=== PATIENT | female | born 1950 | race Caucasian/White ===

== ENCOUNTER → 2017-09-22 | Outpatient (CLI) | payer OTHER, MEDICARE ==
[~2017-09-22] MED LIST: AMIT50TA3 PO; ASCA500 PO; CALC500C70 PO; GUARCHW PO; IPRA0.037 NAE; NXM/40 PO; OMEG10007 PO; ONDA4TAB46 PO; POLY335019 PO; RANI300T2 PO; SIMV20TA5 PO; TRIA1SPR4 NAE; ZOLE5INJ IV
--- NOTE | 2017-09-22 13:45 | MAMMOGRAPHY REPORT ---
BILATERAL DIGITAL SCREENING MAMMOGRAM TOMOSYNTHESIS WITH CAD: 09/22/2017 TECHNIQUE: Breast tomosynthesis in addition to standard 2D mammography was performed. Current study was also evaluated with a Computer Aided Detection (CAD) system. COMPARISON: Comparison is made to exams dated: 09/21/2016 mammogram, 09/17/2015 mammogram, 4 mammogram, 09/12/2013 mammogram, 08/04/2012 mammogram, and 07/01/2011 mammogram - [facility]. BREAST COMPOSITION: The tissue of both breasts is heterogeneously dense, which may obscure small mas ses. FINDINGS: No suspicious masses, calcifications, or areas of architectural distortion are noted in ei ther breast. There has been no significant interval change compared to prior exams. Biopsy marker cl ips are again noted within the left breast. Bilateral benign-appearing calcifications are not signif icantly changed compared to multiple prior exams. IMPRESSION: ACR BI-RADS CATEGORY 2: BENIGN There is no mammographic evidence of malignancy. A 1 year screening mammogram is recommended. The pa tient will receive written notification of the results. Approximately 10% of breast cancers are not detected with mammography. A negative mammographic report should not delay biopsy if a clinically suggestive mass is present. La Masters M.D. /:09/22/2017 12:18:18 Match Maker: Michelle VANN(Shruthi)(M), [facility] letter sent: Normal 1/2 BI-RADS Code: ACR BI-RADS Category 2: Benign
== END | disposition home or self-care (01) ==
LOC: C.MAMM 09:59
PROVIDERS: ATTEND Family Medicine
DX: Z12.31 Encounter for screening mammogram for malignant neoplasm of breast (principal)

== ENCOUNTER → 2017-10-06 | Outpatient (CLI) | payer OTHER, MEDICARE ==
--- NOTE | 2017-10-06 09:42 | EXERCISE STRESS TEST ---
This stress test is being performed because of a chest pain syndrome. The patient exercised for 6 minutes and 5 seconds on a standard Dmitri protocol attaining 7.1 METS and a peak heart rate of 164 beats per minute (greater than 100% predicted maximum). The test was terminated due to fatigue. The patient did not experience exertional anginal pectoris. Initial blood pressure is 130/82 and this increased to 183/87 at peak exertion. Baseline EKG shows normal sinus rhythm without abnormalities. Throughout exercise and recovery, the ST segments remained normal. There were no dysrhythmias. CONCLUSIONS: 1. Normal ECG. Exercise treadmill test predicting a low probability of significant coronary artery disease. 2. No exercise induced chest pain. 3. No EKG changes. 4. No dysrhythmia.
== END | disposition home or self-care (01) ==
LOC: C.CPL 08:20
PROVIDERS: ATTEND Family Medicine
DX: R07.9 Chest pain, unspecified (principal); E78.00 Pure hypercholesterolemia, unspecified

== ENCOUNTER → 2018-02-23 | Outpatient (CLI) | payer OTHER, MEDICARE ==
--- NOTE | 2018-02-23 09:38 | DIAGNOSTIC IMAGING REPORT ---
FUSION CT SINUSES W/O CLINICAL HISTORY: 67 years-old Female presenting with J32.9 Chronic sinusitis Patient has lightheadedness, headache. TECHNIQUE: Multidetector CT of the sinuses was performed without the use of intravenous contrast. IV contrast: None. A dose lowering technique was used consistent with the principles of ALARA (as low as reasonably achievable). COMPARISON: 09/25/2014. CT DOSE (mGy.cm): The estimated cumulative dose is 658.02 mGy.cm. FINDINGS: Sprayer Hand topogram: Unremarkable. Paranasal sinuses demonstrate minimal mucosal thickening in the inferior aspect of the left maxillary sinus. Remainder of paranasal sinuses and mastoid air cells clear. Middle ears clear. No sclerosis of the sinus velazquez to suggest chronic sinusitis. No osseous erosion. Nasofrontal ethmoid recesses and ostiomeatal units are patent bilaterally. No significant deviation of the bony nasal septum. Questionable bony dehiscence of the carotid siphons bilaterally. No bony dehiscence of the optic canals. No other anatomic variant. Limited intracranial evaluation within normal limits. Orbits normal. Superficial soft tissues of the face normal. Upper cervical spine normal. IMPRESSION: 1. No current evidence of acute or chronic sinusitis. 2. Questionable bony dehiscence of the carotid siphons bilaterally. No other anatomic variant. Electronically signed by: Ted Gonzalez M.D. 02/23/2018 9:36 AM Dictated Date/Time: 02/23/2018 9:31 AM
== END | disposition home or self-care (01) ==
LOC: C.CTS 09:12
PROVIDERS: ATTEND Physician Assistant
DX: J32.9 Chronic sinusitis, unspecified (principal)